=== PATIENT | female | born 1950 | race Caucasian/White ===

== ENCOUNTER 2016-07-26 16:32 | Emergency (ER) | payer OTHER ==
[~2016-07-26] VITALS: Ht 152.4 cm; Wt 69.5 kg
[2016-07-26] MEDS ORDERED: NAPROSYN500 MG PO (17:49)
[2016-07-26 18:02] VITALS: BP 116/65
== END 2016-07-26 18:03 | disposition home or self-care (01) ==
LOC: EME 16:32
DX: M50.30 Other cervical disc degeneration, unspecified cervical region (principal); E78.5 Hyperlipidemia, unspecified; I10 Essential (primary) hypertension
CPT/HCPCS: 72040; 99281; 99284; J1885